=== PATIENT | female | born 1995 | race Caucasian/White ===

== ENCOUNTER → 2016-08-31 | Outpatient (CLI) | payer OTHER ==
[~2016-08-31] MED LIST: BACTRIM DS TABL1 TA1 PO; KEFLEX PO; NO MEDICATIONS; PYRIDIUM PO; ROXICET 5/325 SO5 ML PO; VICODIN 5/500 T1 TAB PO
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
== END | disposition home or self-care (01) ==
LOC: CRAD 15:41
DX: M25.562 Pain in left knee (principal)
CPT/HCPCS: 73560